=== PATIENT | female | born 1990 | race Caucasian/White ===

== ENCOUNTER 2023-07-13 19:59 | Outpatient (REF) | payer BC, SELFPAY ==
[2023-07-18 16:09] LABS: Age Gdln ACOG Testing Note (.); HPV Aptima Negative (Negative); IGP, Aptima HPV, rfx 16/18,45 Note (.)
== END 2023-07-13 20:00 | disposition home or self-care (01) ==
LOC: LAB 19:59
PROVIDERS: Visit Provider Physician Assistant
DX: Z01.419 Encounter for gynecological examination (general) (routine) without abnormal findings (principal)
CPT/HCPCS: 87624; G0145

== ENCOUNTER 2023-10-03 09:52 | Emergency (ER) | payer BC, SELFPAY ==
[2023-10-03 09:56] VITALS: BP 113/77; PULSE 84; RESP 18; TEMP 36.7; O2SAT 100; BMI 22.1
--- NOTE | 2023-10-03 10:07 | ED_ITS ---
HPI - Abdominal Pain General Chief Complaint: Abdominal Pain Stated Complaint: ABDOMINAL PAIN Time Seen by Provider: 10/03/23 10:00 Source: patient Mode of arrival: walk-in Limitations: no limitations History of Present Illness HPI narrative: This patient is here complaining of abdominal pain. It started yesterday afternoon. She ate dinner around 6:00 and then had several episodes of vomiting last night. She has not had any diarrhea. She has not taken any medications at all for the discomfort. She actually says that is starting to feel better this morning. She says the pain is in the right mid and lower abdomen and radiates a little bit to the flank. She does not fact have a history of kidney stone once previously it was a large stone that needed surgery. She has not seen a blood in her urine. Her last menstrual period was 2 weeks ago and she does not feel she is but she is not on any contraceptive agents. She has not run a fever. She has not had any previous surgery to the abdomen. She has no previous history of gynecological or ovarian cystic type disease. 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 She moves about comfortably on the cart with no hesitation grimacing or apparent discomfort. Her vital signs are noted are normal. Examination of the abdomen there is good bowel sounds in all quadrants with no high-pitched tinkling sounds. There is no pulsatile masses. There is no peritoneal findings, no guarding no rigidity. Very mild tenderness is noted in the left lower and the right lower quadrant with no substantial difference. Hicks sign is negative. There is no flank tenderness with percussion over the costovertebral angles. There is no evidence of shingles or other skin lesions or abnormalities. Constitutional Vital Signs, click to edit/add: Last Vital Signs Temp 98.1 F 10/03/23 09:56 Pulse 84 10/03/23 09:56 Resp 18 10/03/23 09:56 BP 113/77 10/03/23 09:56 Pulse Ox 100 10/03/23 09:56 Course Vital Signs Vital signs: Vital Signs Temperature 98.1 F 10/03/23 09:56 Pulse Rate 84 10/03/23 09:56 Respiratory Rate 18 10/03/23 09:56 Blood Pressure 113/77 10/03/23 09:56 Pulse Oximetry 100 10/03/23 09:56 Temperature 98.1 F 10/03/23 09:56 Pulse Rate 84 10/03/23 09:56 Respiratory Rate 18 10/03/23 09:56 Blood Pressure 113/77 10/03/23 09:56 Pulse Oximetry 100 10/03/23 09:56 MDM - Abdominal Pain MDM Narrative Medical decision making narrative: This patient presents with approximately 16 hours onset of abdominal discomfort with several episodes of vomiting. She actually says her symptoms are improving. Her examination was essentially benign with no acute physical examination findings. Her white blood cell count lipase and urinalysis are all normal. I believe she is adequate for outpatient management with careful observation. She was instructed to return if her symptoms got worse or she developed a fever. She is advised clear fluid diet and she will be given a prescription for some Zofran. Discharge Plan Discharge Stand Alone Forms: Portal Instructions Chief Complaint: Abdominal Pain Clinical Impression: Abdominal pain Patient Disposition: Home, Self-Care Time of Disposition Decision: 10:53 Prescriptions / Home Meds: No Action No Known Home Medications Print Language: [place] Additional Instructions: Clear fluid or soft diet today/Zofran as needed. Return for fever or worse pain Referrals: Physician,Non-Staff, MD [Primary Care Provider] - 1 week
[2023-10-03 10:26] LABS: Basophils Percent Auto 0.3 % (0.2-2.0); Eosinophils Absolute Auto 0.2 10^3/uL (0.0-0.7); Eosinophils Percent Auto 3.9 % (0.9-7.0); Hematocrit 39.6 % (36.0-48.0); Hemoglobin 13.7 g/dL (12.0-16.0); Immature Granulocytes Abs Auto 0.01 10^3/uL (0.00-0.03); Immature Granulocytes Pct Auto 0.2 % (0.0-0.5); Lymphocytes Absolute Auto 0.5 10^3/uL (1.2-3.8); Lymphocytes Percent Auto 8.4 % (20.5-60.0); Mean Corpuscular HGB Conc 34.6 g/dL (29.9-35.2); Mean Corpuscular Hemoglobin 33.6 pg (26.7-34.0); Mean Corpuscular Volume 97.1 fL (81.0-99.0); Mean Platelet Volume 8.7 fL (9.5-13.5); Monocytes Absolute Auto 0.3 10^3/uL (0.3-0.8); Monocytes Percent Auto 4.9 % (1.7-12.0); Neutrophils Absolute Auto 5.1 10^3/uL (1.4-6.5); Neutrophils Percent Auto 82.3 % (43.0-75.0); Platelet Count 245 10^3/uL (150-450); Red Blood Count 4.08 10^6/uL (4.20-5.40); Red Cell Distribution Width 12.3 % (11.0-15.0); White Blood Count 6.2 10^3/uL (4.0-11.0)
[2023-10-03 10:28] LABS: Bilirubin Urine NEGATIVE (NEGATIVE); Blood Urine NEGATIVE (NEGATIVE); Clarity Urine CLEAR (CLEAR); Color Urine YELLOW (YELLOW); Glucose Urine UA NEGATIVE (NEGATIVE); Ketones Urine NEGATIVE (NEGATIVE); Leukocyte Esterase Urine NEGATIVE (NEGATIVE); Nitrite Urine NEGATIVE (NEGATIVE); Protein Urine NEGATIVE (NEG/TRACE); Specific Gravity Urine 1.015 (1.005-1.025); Urine Microscopic Indicated NO
[2023-10-03 10:31] LABS: HCG Qualitative Urine* NEGATIVE (NEGATIVE)
[2023-10-03 10:45] LABS: Lactate/Lactic Acid 0.8 mmol/L (0.4-2.0)
== END 2023-10-03 10:59 | disposition home or self-care (01) ==
PROVIDERS: Emergency Provider Emergency Medicine Emergency Medical Services
DX: R10.9 Unspecified abdominal pain (principal); Z87.442 Personal history of urinary calculi
CPT/HCPCS: 36415; 81003; 83605; 83690; 84703; 85025; 99283